=== PATIENT | male | born 1960 | race Caucasian/White ===

== ENCOUNTER → 2020-11-07 | Outpatient (CLI) | payer OTHER | LOC: RAD 10:15 | DX: S39.012A Strain of muscle, fascia and tendon of lower back, initial encounter (principal); R07.81 Pleurodynia; M47.816 Spondylosis without myelopathy or radiculopathy, lumbar region; R93.7 Abnormal findings on diagnostic imaging of other parts of musculoskeletal system; X58.XXXA Exposure to other specified factors, initial encounter | CPT/HCPCS: 71111; 72110 ==

== ENCOUNTER 2021-06-28 07:11 | Inpatient (IN) | payer OTHER ==
[~2021-06-28] VITALS: Ht 182.9 cm; Wt 167.8 kg
[2021-06-28 07:44] LABS: HEMOGLOBIN 15.6 gm/dl (14.0-17.5); RED BLOOD COUNT 5.55 M/UL (4.20-5.50); WHITE BLOOD COUNT 7.3 K/UL (4.5-11.0)
[2021-06-28 08:22] LABS: BUN/CREATININE RATIO 16 (0-10)
[2021-06-28] MEDS ORDERED: METFORMIN HCL500 MG PO (11:17)
[2021-06-28] MEDS ORDERED: VALSARTAN160 MG PO (11:18)
[2021-06-28] MEDS ORDERED: ASPIRIN81 MG PO (11:18)
[2021-06-28 17:12] LABS: HEMOGLOBIN 14.8 gm/dl (14.0-17.5); RED BLOOD COUNT 5.03 M/UL (4.20-5.50)
[2021-06-28 17:14] LABS: WHITE BLOOD COUNT 10.3 K/UL (4.5-11.0)
[2021-06-29 02:04] LABS: HEMOGLOBIN 13.9 gm/dl (14.0-17.5); RED BLOOD COUNT 4.71 M/UL (4.20-5.50); WHITE BLOOD COUNT 9.3 K/UL (4.5-11.0)
[2021-06-29 03:30] LABS: BUN/CREATININE RATIO 20 (0-10)
[2021-06-30 05:50] LABS: HEMOGLOBIN 14.1 gm/dl (14.0-17.5); RED BLOOD COUNT 4.85 M/UL (4.20-5.50); WHITE BLOOD COUNT 8.3 K/UL (4.5-11.0)
[2021-06-30 06:19] LABS: BUN/CREATININE RATIO 17 (0-10)
--- NOTE | 2021-06-30 15:38 | NUR ---
1400 PT RETURN FROM [facility] WITH TR BAND ON RIGHT WRIST INTACT. SITE CDI WNL. PT EDUCATED ON WHAT TO LOOK FOR ON WRIST. PT CAN WIGGLE FINGERS AND HAS NO NUMBNESS OR TINGLING. WILL BEGIN TO RELASE AIR IN TR BAND AT 1630 PER MD ORDER. TR BAND HAS 16ML OF AIR AT START. WCTM.
--- NOTE | 2021-06-30 18:42 | NUR ---
TR BAND OFF. SITE WNL. BANDAID PLACED ON SITE. PT HAS NO COMPLAINS.
[2021-07-01 08:18] LABS: BUN/CREATININE RATIO 14 (0-10)
[2021-07-01 08:39] LABS: HEMOGLOBIN 13.6 gm/dl (14.0-17.5); RED BLOOD COUNT 4.84 M/UL (4.20-5.50); WHITE BLOOD COUNT 7.8 K/UL (4.5-11.0)
[2021-07-01] MEDS ORDERED: ATORVASTATIN CA20 MG PO (10:23)
[2021-07-01] MEDS ORDERED: CLOPIDOGREL75 MG PO (10:23)
[2021-07-01] MEDS ORDERED: VALSARTAN80 MG PO (10:23)
[2021-07-01] MEDS ORDERED: LOPRESSOR 25 MG25 MG PO (10:23)
[2021-07-01] MEDS ORDERED: METFORMIN ER G500 MG PO (10:33)
== END 2021-07-01 11:33 | disposition home or self-care (01) | DRG 280 ==
LOC: ER1 07:11 → MED SURG 4 10:45 → CDU 10:45 → PROG CARE 10:45 → MED SURG 4 11:56 → PROG CARE 06-29 14:48
PROVIDERS: Internal Medicine Cardiovascular Disease; Physician Assistant; ADMIT Internal Medicine
PROC: B24BZZZ Ultrasonography of Heart with Aorta (ICD-10-PCS; 2021-06-29)
PROC: 4A023N7 Measurement of Cardiac Sampling and Pressure, Left Heart, Percutaneous Approach (ICD-10-PCS; principal; 2021-06-30)
PROC: B2111ZZ Fluoroscopy of Multiple Coronary Arteries using Low Osmolar Contrast (ICD-10-PCS; 2021-06-30)
PROC: B2151ZZ Fluoroscopy of Left Heart using Low Osmolar Contrast (ICD-10-PCS; 2021-06-30)
DX: I21.4 Non-ST elevation (NSTEMI) myocardial infarction (principal); I50.31 Acute diastolic (congestive) heart failure; I48.92 Unspecified atrial flutter; Z68.43 Body mass index [BMI] 50.0-59.9, adult; E11.9 Type 2 diabetes mellitus without complications; Z20.822 Contact with and (suspected) exposure to COVID-19; E66.01 Morbid (severe) obesity due to excess calories; I11.0 Hypertensive heart disease with heart failure; K21.9 Gastro-esophageal reflux disease without esophagitis; F17.210 Nicotine dependence, cigarettes, uncomplicated; I08.2 Rheumatic disorders of both aortic and tricuspid valves; I25.119 Atherosclerotic heart disease of native coronary artery with unspecified angina pectoris; Z79.82 Long term (current) use of aspirin; Z79.84 Long term (current) use of oral hypoglycemic drugs; Z79.02 Long term (current) use of antithrombotics/antiplatelets; Z98.890 Other specified postprocedural states; Z82.49 Family history of ischemic heart disease and other diseases of the circulatory system; Z83.3 Family history of diabetes mellitus; Z79.4 Long term (current) use of insulin; Z79.01 Long term (current) use of anticoagulants; I25.2 Old myocardial infarction
CPT/HCPCS: ECHO; 36415; 71045; 71250; 71275; 80048; 80053; 80061; 82550; 82553; 82962; 83036; 83874; 84484; 85025; 85027; 85610; 85730; 93005; 93306; 99152; 99153; 99285; C1753; C1769; C1887; C1894; J1644; J2250; J2405; J3010; J7030; J7040; Q9957; Q9967; U0002